=== PATIENT | female | born 1975 | race Caucasian/White ===

== ENCOUNTER 2020-08-01 12:04 | Emergency (ER) | payer OTHER, SELFPAY ==
--- NOTE | ~2020-08-01 | XR_ITS ---
EXAMINATION: XR chest 2V DATE: 08/01/2020 13:01 INDICATION: Chest pain. TECHNIQUE: Frontal and lateral views of the chest were obtained. COMPARISON: None. FINDINGS: The chest demonstrates clear lungs without pneumonia, pleural effusion, or pneumothorax. Th e heart size is normal. IMPRESSION: 1. No acute cardiopulmonary disease. Reviewed, dictated and finalized at location A.
[2020-08-01 12:09] VITALS: BP 149/89; PULSE 86; RESP 18; TEMP 36.1; O2SAT 97
--- NOTE | 2020-08-01 12:09 | ECG_ITS ---
Measurements Intervals [place] Rate: 94 P: 49 OR: 150 QRS: 50 QRSD: 85 T: 49 QT: 378 QTc: 475 Interpretive Statements SINUS RHYTHM BASELINE ARTIFACT- I, III, AVL NORMAL ECG Electronically Signed On 08-01-2020 19:45:28 CDT by Zach Underwood D.O.
[2020-08-01 12:30] VITALS: PULSE 84; RESP 15; O2SAT 100
--- NOTE | 2020-08-01 12:43 | PC.NURSE ---
Attempted lab draw x 3 w/out success.
--- NOTE | 2020-08-01 12:45 | PC.NURSE ---
EDP Dr Stafford in room for pt andrew. EDP asks pt about PMH of anxiety, pt states Yes, but I haven't had a panic attack in a long time. EDP questioned pt on what caused current panic attack. Pt states I woke up with a baby today. EDP questioned pt on what happened to the baby. Pt states I dont know, I went to bed and when I woke up, I patted his little butt like I always do, and he was gone. Pt calm, clear voice, flat affect. EDP questioned pt on drinking or drug use. Pt states she did have alcohol prior to bed, states We all drank, and went to bed. When I woke, he was gone. Pt noted to this RN that she has a PMH of drug abuse, denies current drug abuse. Denies SI/HI. Pt states she does not take any PO medications for anxiety. Pt has a child at the bedside. Pt currently requesting a warm blanket and socks.
--- NOTE | 2020-08-01 12:53 | PC.NURSE ---
pt to xray via w/c
--- NOTE | 2020-08-01 13:13 | PC.NURSE ---
This RN was unsuccessful with IV/Lab draw attempt. Pt states They always have a hard time, they usually get a PICC nurse. When looking for access pt repeatedly states Oh, you arent going to find anything there. I guarantee you won't. I used to do drugs, but that isn't why my veins are bad. Its because I had IV vancomycin for MRSA. facility maintenance technicianclaire Leiva and Karlee also multiple unsuccessful lab draw attempt. Alli VALDERRAMA currently in room attempting IV access and labs via ultrasound.
--- NOTE | 2020-08-01 13:18 | ED.ANXIETY ---
HPI - Anxiety General Chief Complaint: Anxiety Stated Complaint: nausea/dizziness Time Seen by Provider: 08/01/20 12:12 Source: patient Mode of arrival: EMS Limitations: no limitations History of Present Illness HPI narrative: Patient is a 45-year-old female complaining of I am having an anxiety attack , describes as headache, dizziness, palpitations, chest tightness, shortness of breath that started prior to arrival. Patient states that she woke up this morning and found her baby . Patient states that she does not know what happened to her baby. Police is at the scene and knows about the situation. Patient states that she did have drinks yesterday, went to sleep, the baby was okay at that time and when she woke up to pat the baby's buttocks like she usually does and found the baby unresponsive. Patient denies any suicidal or homicidal ideations. Patient denies any thoughts of injuring herself or others. Patient denies drug use. Related Data Home Medications Medication Instructions Recorded Confirmed No Home Medications 08/01/20 08/01/20 Allergies Allergy/AdvReac Type Severity Reaction Status Date / Time cefazolin [From Ancef] Allergy Anaphylaxis Verified 08/01/20 12:41 metoclopramide [From Reglan] Allergy Anaphylaxis Verified 08/01/20 12:42 Review of Systems Review of Systems: All systems reviewed & are unremarkable except as noted in HPI and below Constitutional: Constitutional: Denies body ache(s), Denies chills, Denies excessive sweating, Denies fatigue, Denies fever(s), Denies headache(s), Denies lethargy, Denies malaise, Denies weakness and Denies weight loss Eyes: Eyes: Denies blurry vision, Denies change in vision and Denies loss of vision ENT: Denies dizziness, Denies ear discharge, Denies headache(s), Denies lip swelling, Denies epistaxis, Denies nasal congestion, Denies neck pain, Denies throat swelling and Denies tongue swelling Cardiovascular: Cardiovascular: Denies chest pain, Denies chest pain at rest, Denies chest pain with activity, Denies diaphoresis, Denies rapid heart rate, Denies edema, Denies irregular heart rhythm, Denies lightheadedness, Denies palpitations, Denies dyspnea and Denies dyspnea on exertion Respiratory: Respiratory: Denies chest congestion, Denies cough, Denies hemoptysis, Denies dyspnea and Denies dyspnea on exertion Gastrointestinal: Gastrointestinal: Denies abdominal pain, Denies melena, Denies hematochezia, Denies diarrhea, Denies nausea, Denies vomiting and Denies hematemesis Musculoskeletal: Musculoskeletal: Denies abnormal gait, Denies deformity, Denies joint swelling, Denies limited range of motion, Denies neck pain and Denies numbness Neurologic: Denies Abnormal speech present, Denies abnormal gait, Denies confusion, Denies dizziness, Denies headache(s), Denies focal weakness, Denies loss of vision, Denies numbness, Denies Other visual disturbances, Denies Sensory deficit (Neuro) and Denies weakness Psychiatric: Psychiatric: Denies confusion, Denies depression, Denies auditory hallucinations, Denies homicidal ideation and Denies suicidal ideation Endocrine: Endocrine: Denies cold intolerance, Denies excessive sweating, Denies fatigue, Denies heat intolerance and Denies palpitations Hematologic/Lymphatic: Hematologic/Lymphatic: Denies easy bleeding and Denies easy bruising Allergic/Immunologic: Allergic/Immunologic: Denies lip swelling, Denies throat swelling and Denies tongue swelling PMFSH Social History Social History Gender identity (if verbalized by the patient): Female Comments Past medical history: Anxiety Family history: Noncontributory Social history: Occasional EtOH use, no drug use Exam Const: General: cooperative, healthy appearing, comfortable, no acute distress, well developed, alert and awake; No confusion Orientation/consciousness: oriented to person, oriented to place, oriented to time, patient oriented x3 and No confusion Limitations: no l
--- NOTE | 2020-08-01 13:22 | PC.NURSE ---
Pt son in [place] using telephone to attempt to find a ride. When returning to room, pt states Call some other people, they wont get annoyed, just call.
[2020-08-01 13:23] VITALS: BP 138/84; PULSE 89; RESP 21; O2SAT 97
--- NOTE | 2020-08-01 13:23 | PC.NURSE ---
Uyen VALDERRAMA in room at this time to attempt IV access/labs.
--- NOTE | 2020-08-01 13:34 | PC.NURSE ---
IV and lab draw obtained via u/s and sent to lab. Pt ambulated to restroom to provide u/a sample. Pt ambulated w/ steady gait and no assist.
--- NOTE | 2020-08-01 13:36 | PC.NURSE ---
This RN gave note to pt per community director, give Gloria Swanson a call at [phone] (pts mother in law). Not given to pt.
[2020-08-01 13:40] LABS: Basophils Absolute Auto 0.1 K/mm3 (0.0-0.1); Basophils Percent Auto 0.8 % (0.2-1.2); Eosinophils Absolute Auto 0.1 K/mm3 (0-0.3); Eosinophils Percent Auto 0.8 % (0-4.4); Hematocrit 43.9 % (37.0-47.0); Hemoglobin 14.1 g/dL (12.0-15.0); Immature Granulocyte Absolute 0.04 K/mm3 (0.00-0.031); Immature Granulocyte Percent A 0.3 % (0-0.5); Lymphocytes Absolute Auto 2.11 K/mm3 (0.9-3.2); Lymphocytes Percent Auto 18.4 % (18.3-44.2); Mean Corpuscular HGB Conc 32.1 g/dl (32-36); Mean Corpuscular Hemoglobin 28.5 pg (26-34); Mean Corpuscular Volume 88.7 fl (80-100); Mean Platelet Volume 8.7 fl (7.4-10.4); Monocytes Absolute Auto 0.5 K/mm3 (0.1-0.6); Monocytes Percent Auto 4.6 % (2.6-8.5); Neutrophils Absolute Auto 8.6 K/mm3 (1.3-6.7); Neutrophils Percent Auto 75.1 % (45.5-73.1); Platelet Count Result 354 k/mm3 (150-375); Red Blood Count 4.95 M/mm3 (4.2-5.4); Red Cell Distribution Width 14.6 % (11.5-14.5); White Blood Count 11.5 K/mm3 (4.5-10.0)
[2020-08-01 13:49] LABS: Ethanol < 10 mg/dL (<10)
[2020-08-01 13:52] LABS: Anion Gap 7 mmol/L (8-16); Blood Urea Nitrogen 10 mg/dL (7-17); Calcium 8.9 mg/dL (8.4-10.2); Carbon Dioxide 26 mmol/L (22-30); Chloride 110 mmol/L (98-107); Estimated Glomerular Filt Rate > 60; Glucose 96 mg/dL (65-105); Sodium 143 mmol/L (137-145)
[2020-08-01 14:04] LABS: Troponin I < 0.012 ng/mL (0.000-0.034)
[2020-08-01 14:14] LABS: INR 0.9; Prothrombin Time 12.4 Seconds (11.1-14.7)
[2020-08-01 14:15] LABS: Amphetamine Screen Urine Negative (Negative); Barbiturate Screen Urine Negative (Negative); Benzodiazepines Screen Urine Negative (Negative); Cannabinoid Screen Urine Positive (Negative); Cocaine Screen Urine Negative (Negative); Methadone Screen Urine Negative (Negative); Opiate Screen Urine Negative (Negative); Phencyclidine Screen Urine Negative (Negative)
[2020-08-01 14:17] LABS: Partial Thromboplastin Time 26.5 SECONDS (22.3-36.8)
--- NOTE | 2020-08-01 14:20 | PC.NURSE ---
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 EDP notified.
[2020-08-01 14:22] VITALS: BP 130/86; PULSE 81; RESP 19; O2SAT 99
--- NOTE | 2020-08-01 14:30 | PC.NURSE ---
Pt son standing next to female outside of pt room. Female is pointing, directing pt on how to exit the ER. This RN states Are you visitor of the patient? If so, he is a minor and cannot leave the ER with no guardian. The female states Yes, I am the grandmother. His aunt has a sandwich for him in the car. This RN states You will have to walk him to the entrance. He cannot be alone. The female nodded and stated to the patient I am going to walk him to the car to get the sandwich. The son exited the ER with the grandmother.
--- NOTE | 2020-08-01 15:22 | PC.NURSE ---
Addendum entered by Nusrat Llanes RN 08/01/20 15:25: At time of AMA papers and pt departure was 1510. Original Note: Pt comes to desk and states I am leaving, no one here is doing anything to help me and I feel better. My chest pain is gone and the ringing in my ears is gone. I have a lot to deal with and do with my baby. I can't stay around here any longer. I'm feeling fine. This RN encouraged pt to stay and get lab results and talk to EDP. Pt states No, I will just sign out against medical advice, I am a nervous wreck, my mind isnt right, I have stuff to deal with. EDP notified and pt signed AMA papers. Pt ambulated out w/ steady gait in no obvious distress. Pt states Thanks, have a good day on her way out.
== END 2020-08-01 19:30 | disposition left against medical advice (07) ==
PROVIDERS: Emergency Medicine; Emergency Provider Emergency Medicine
DX: F41.9 Anxiety disorder, unspecified (principal)
CPT/HCPCS: 36415; 71046; 80048; 80307; 84484; 85025; 85610; 85730; 93005; 99284